=== PATIENT | male | born 1985 | race African-American/Black ===

== ENCOUNTER 2023-03-22 23:43 | Emergency (ER) | payer MEDICAID ==
[~2023-03-22] VITALS: Ht 190.5 cm; Wt 132.6 kg
[~2023-03-22 23:43] MED LIST: SULF1TAB48 MT
[2023-03-22 23:58] VITALS: BP 129/82; PULSE 90; RESP 16; TEMP 98.1; O2SAT 100
== END 2023-03-23 02:44 | disposition left against medical advice (07) ==
LOC: ER 23:43
DX: Z53.21 Procedure and treatment not carried out due to patient leaving prior to being seen by health care provider (principal)
CPT/HCPCS: 99281

== ENCOUNTER 2023-08-20 08:26 | Emergency (ER) | payer MEDICAID ==
[~2023-08-20] VITALS: Ht 188 cm; Wt 114.0 kg
[2023-08-20 08:33] VITALS: BP 145/95; PULSE 89; RESP 18; TEMP 98.2; O2SAT 99
== END 2023-08-20 13:29 | disposition left against medical advice (07) ==
LOC: ER 08:26
DX: N50.89 Other specified disorders of the male genital organs (principal)
CPT/HCPCS: 99281